=== PATIENT | female | born 1960 | race Caucasian/White ===

== ENCOUNTER 2019-05-03 13:22 | Observation (INO) | payer OTHER ==
[~2019-05-03] VITALS: Ht 162.6 cm; Wt 90.7 kg
[2019-05-03 13:58] LABS: HEMOGLOBIN 12.9 gm/dL (12.0-15.0); MCH 29.9 pg (26.0-34.0); MCHC 33.2 g/dL (28.0-37.0); MPV 7.1 fl. (7.2-11.1); RBC 4.33 mil/uL (4.20-5.00); RDW-CV 14.5 % (10.5-14.5); WBC 4.9 thou/uL (4.0-11.0)
[2019-05-03] MEDS ORDERED: HUMALOG100 UNIT/1 SUBQ ×2 (14:02)
[2019-05-03] MEDS ORDERED: NORCO 5-325 TA1 EAC1 PO ×2 (14:03)
[2019-05-03 14:12] LABS: CALCIUM 8.2 mg/dL (8.5-10.1); POTASSIUM 4.2 mmol/L (3.5-5.1)
[2019-05-03 14:17] LABS: ALBUMIN 3.5 g/dL (3.4-5.0); TOTAL BILIRUBIN 0.8 mg/dL (<0.1-1.0); TOTAL PROTEIN 6.4 g/dL (6.4-8.2)
--- NOTE | 2019-05-03 15:31 | EKG ---
[place] [address] ELECTROCARDIOGRAM REPORT Name: DONNYJIMMIE Matty Room: [facility]#: [id number] Admission: 05/03/19 Attend Phys: Bryant León DO Discharge: Date of : 60 Report #: [id number] THIS REPORT FOR: //name// [facility] Test Date: 2019-05-03 Test Time: 13:46:49 Pat Name: JIMMIE HINES Department: Room: Gender: F Cdl Service Technician: RT : 1960 Requested By: Bryant León Order Number: [id number] Reading MD: Van Valiente Measurements Intervals [place] Rate: 64 P: 64 [place]: 186 QRS: -30 QRSD: 101 T: 23 QT: 417 QTc: 431 Interpretive Statements Sinus rhythm Consider left atrial enlargement Left axis deviation Anterior infarct, old No previous ECG available for comparison Electronically Signed On 05-03-2019 15:31:11 HOME COMFORT ADVISOR by Van Valiente [email or web address] <ELECTRONICALLY SIGNED> By: Van Valiente MD, [facility] 05/03/19 1531 1346 [id number] Van Valiente MD, FACC /EPI
[2019-05-03 20:00] VITALS: BP 160/63
[2019-05-04 04:00] VITALS: BP 148/67
--- NOTE | 2019-05-04 05:13 | NUR ---
PATIENT ARRIVED ON FLOOR FROM PACU AT ABOUT 1999. PATIENT ADMISSION HISTORY AND ASSESSMENT WAS COMPLETED CHARTED. PATIENT STARTED OFF ON 4L PER NC RT DROPPED TO 2L PER NC. PATIENT SATTING 95-96% ON RA THIS MORNING O2 IS ON STANDBY CONTINUOUS PULSE OX REMAINS IN PLACE. PATIENT WAS GIVEN ONE PAIN PILL TWICE. PATIENT SHOULD DC HOME LATER THIS MORNING. WILL CONTINUE TO MONITOR.
[2019-05-04] MEDS ORDERED: NEURONTIN 300300 M1 PO ×2 (07:02)
[2019-05-04 07:59] VITALS: BP 138/63
[2019-05-04 10:09] VITALS: BP 138/63
[2019-05-04] MEDS ORDERED: COLACE100 MG PO ×2 (10:28)
[2019-05-04] MEDS ORDERED: MIRALAX119 GM PO ×2 (10:28)
[2019-05-04] MEDS ORDERED: ADVIL200 M1 PO ×2 (10:29)
--- NOTE | 2019-05-04 13:12 | NUR ---
PT DISCHARGED AT 1310 WITH NURSING STAFF AND TO HOME. OX >95% ON RA. PAIN CONTROLLED. TOLERATING FOOD. IV OUT. NORCO SCRIPT GIVEN FROM LEONELA YESTERDAY AT CLINIC. PERSONAL ITEMS SENT WITH PT.
--- NOTE | 2019-05-23 18:53 | OP ---
[address] [address] OPERATIVE REPORT Name: JIMMIE HINES Room: [address] Aki Khan#: [id number] Admission: 05/03/19 Attend Phys: Fernanda Lazaro Discharge: 05/04/19 Date of : 60 Report #: [id number] THIS REPORT FOR: //name// CC: Dang Curry DATE OF SERVICE: 05/03/2019 PREOPERATIVE DIAGNOSIS: Left extraarticular distal radius fracture. POSTOPERATIVE DIAGNOSIS: Left extraarticular distal radius fracture. PROCEDURE: Open reduction and internal fixation, left extraarticular distal radius fracture. SURGEON: Bryant León DO PRESS OFFICER: Maciel Torres DO ANESTHESIA: General. ANTIBIOTICS: Ancef IV preoperatively. FLUIDS: 850 mL lactated Ringer's. ESTIMATED BLOOD LOSS: 25 mL. COMPLICATIONS: None. SPECIMENS: None. DRAINS: None. CONDITION OF PATIENT: Stable to PACU. IMPLANTS: Angelica distal radius plate, peel-packed, longer plate from what was carried in the tray would be necessary, cortical screws proximally and locking screws distally. INDICATIONS FOR PROCEDURE: The patient was referred to my clinic by Dr. Van Goel, originally seen on the . She I believe had been discussed by Dr. Ye and also by Dr. Goel about her fracture. We stated that this was all extraarticular fracture. They recommended that I take over due to the complexity of the case. I discussed with the patient in clinic and in the preoperative area. The treatment options and plan of surgery with reasoning and risks and complications in detail. She gave consent to proceed, after [facility] [address] [place] [address] OPERATIVE REPORT Name: JIMMIE HINES Room: [address] Aki Khan#: [id number] Admission: 05/03/19 Attend Phys: Fernanda Lazaro Discharge: 05/04/19 Date of : 60 Report #: [id number] acknowledging and accepting the risks and complications. DESCRIPTION OF PROCEDURE: I marked the left upper extremity in the presence of the operative team members. Everyone agreed this was correct. She was taken back to the operative suite where a briefing was performed indicating correct patient, procedure, site, antibiotics and that implants were present and sterile. All team members agreed. She was transferred over to the operative table in supine position, well-padded and secured. General anesthetic administered. A well-padded tourniquet was placed proximally on the left upper extremity, which was then sterilely prepped and draped in standard fashion. Timeout was performed indicating correct patient, procedure, site, antibiotics and that implants were present and sterile. All team members agreed. Marked out our incision for a modified volar Saúl approach and extended this proximally as a longer plate placement would be needed. Esmarched the extremity and inflated the tourniquet to 250 mmHg, scalpel through skin, down to the FCR tendon, sheath incised proximally and distally. All structures were taken ulnarly with the exception of the radial artery, which was taken radially. Incising the fascia of FPL muscle, radial artery identified and protected, taken radially, everything taken ulnarly, down on to bone, excised quadratus, visualized our fracture site. We were able to get an excellent reduction, further reduction confirmed on multiplanar C-arm imaging that was appropriate. The remaining joints were stable as well with that at appropriate reduction and optimally we then placed the plate, confirmed on multiplanar C-arm imaging that our plate was in appropriate position and began by placing cortical screws proximally, locking screws distally. All hardware in place, we removed provisional fixation. Our stability was excellent and fracture reduction was excellent. This was all confirmed by direct visualization as well as C-arm, saved the images, dismissed C-arm let down tourniquet. Total time was 37 minutes. Maintained hemostasis. Radial artery was palpable and there was no injury. Hand was warm and well perfused. Thoroughly irrigated with normal saline. Closure was with 3-0 Monocryl buried deep and a running 3-0 nylon sutures. Debriefing was performed where we confirmed the procedure, blood loss and that all counts were correct and final. All team members agreed. She was placed into a very well-padded and sterile splint and taken to PACU stable. POSTOPERATIVE COURSE AND EVALUATION: I spoke with her , addressed any questions she had to her stated satisfaction. She was thankful for my time and efforts. She was resting in PACU with stable vital signs. Neurovascularly intact. Dressing clean, dry and intact. Splint clean, dry and intact. There were some pain control issues; however, she was overall resting in between pain medication. She had no pain with passive stretch. Compartments are soft and compressible and tendons were all functioning appropriately. We did contact Medicine to admit her for pain control and we will continue to observe her. [address] [place] [address] OPERATIVE REPORT Name: JIMMIE HINES Room: [address] Aki Khan#: [id number] Admission: 05/03/19 Attend Phys: Fernadna Lazaro Discharge: 05/04/19 Date of : 60 Report #: [id number] DVT prophylaxis will be pharmacological and mechanical until instructed otherwise, Nonweightbearing range of motion encouraged. <ELECTRONICALLY SIGNED> By: Bryant León DO 05/23/19 1853 [id number] León DO /nt
== END 2019-05-04 13:10 | disposition home or self-care (01) ==
LOC: M.SUR 13:22 → M.TBA-ER 20:00 → M.ORTHSURG 20:00
PROVIDERS: Orthopaedic Surgery; ADMIT Internal Medicine
DX: S52.552A Other extraarticular fracture of lower end of left radius, initial encounter for closed fracture (principal); R09.02 Hypoxemia; E10.9 Type 1 diabetes mellitus without complications; Z79.4 Long term (current) use of insulin; Z79.899 Other long term (current) drug therapy; W19.XXXA Unspecified fall, initial encounter; Y93.89 Activity, other specified; Y92.89 Other specified places as the place of occurrence of the external cause

== ENCOUNTER → 2019-05-17 | Outpatient (CLI) | payer OTHER ==
[~2019-05-17] MED LIST: ADVIL200 M1 PO; COLACE100 MG PO; HUMALOG100 UNIT/1 SUBQ; MIRALAX119 GM PO; NEURONTIN 300300 M1 PO; NORCO 5-325 TA1 EAC1 PO
== END ==
LOC: M.LAB 13:29
DX: S52.502D Unspecified fracture of the lower end of left radius, subsequent encounter for closed fracture with routine healing (principal); X58.XXXD Exposure to other specified factors, subsequent encounter